=== PATIENT | male | born 1955 | race Caucasian/White ===

== ENCOUNTER → 2016-08-08 | Outpatient (CLI) | payer MEDICARE, BC ==
[~2016-08-08] MED LIST: ADVAIR 250/28 DISKU1 IH; ALBUTEROL0.09 MG/A4 IH; ALEVE 220MG220 MG PO; ALEVE ARTHRITI220 MG PO; CHILDREN'S ASPI81 M1 PO; COMBIVENT INH14.7 GM IH; COMBIVENT RESPI1 SPR INH; FLONASE ALLERG9.9 ML NAS; IPRATROPIUM BROM3 M1 IH; IPRATROPIUM BROM3 M1 INH; MUCINEX D ER T1 EACH PO; NORCO 325 MG-51 TA1 PO; OXY; SINGULAIR10 MG PO; THEO-24 20200 MG/CAP PO; ZYRTEC10 M3 PO; ZYRTEC10 MG PO
== END ==
LOC: RAD 10:38
DX: M54.5 Low back pain (principal); K59.00 Constipation, unspecified

== ENCOUNTER → 2016-11-17 | Outpatient (CLI) | payer MEDICARE, BC ==
[2015-12-02 11:14] VITALS: BP 159/75
== END ==
LOC: RAD 11:56
DX: J43.8 Other emphysema (principal); J20.9 Acute bronchitis, unspecified; R05 Cough

== ENCOUNTER → 2017-05-02 | Outpatient (CLI) | payer MEDICARE, BC ==
[2015-12-02 11:14] VITALS: BP 159/75
[2017-05-02 09:07] LABS: HEMATOCRIT 40.1 % (42.0-52.0); HEMOGLOBIN 13.2 g/dL (13.5-18.0); MEAN PLATELET VOLUME 9.7 fl (7.4-10.4); RED BLOOD COUNT 4.46 M/mm3 (4.20-5.60); RED CELL DISTRIBUTION WIDTH 13.4 % (11.5-14.5); WHITE BLOOD COUNT 7.5 K/mm3 (4.8-10.8)
[2017-05-02 09:16] LABS: ALBUMIN 3.7 g/dL (3.5-5.0); BUN/CREATININE RATIO 27.9 (6.0-26.0); CALCIUM 9.1 mg/dL (8.4-10.2); TOTAL BILIRUBIN 0.7 mg/dL (0.2-1.3); TOTAL PROTEIN 7.6 g/dL (6.3-8.2)
== END ==
LOC: LAB 08:50
PROVIDERS: Family Medicine
DX: R73.09 Other abnormal glucose (principal); Z13.6 Encounter for screening for cardiovascular disorders; Z12.5 Encounter for screening for malignant neoplasm of prostate; D64.89 Other specified anemias

== ENCOUNTER → 2017-07-27 | Outpatient (CLI) | payer MEDICARE, BC ==
[2015-12-02 11:14] VITALS: BP 159/75
[2017-07-27 08:48] LABS: HEMATOCRIT 40.3 % (42.0-52.0); HEMOGLOBIN 13.5 g/dL (13.5-18.0); MEAN PLATELET VOLUME 9.4 fl (7.4-10.4); RED BLOOD COUNT 4.5 M/mm3 (4.20-5.60); RED CELL DISTRIBUTION WIDTH 13.5 % (11.5-14.5); WHITE BLOOD COUNT 7.3 K/mm3 (4.8-10.8)
[2017-07-27 08:59] LABS: BUN/CREATININE RATIO 24.8 (6.0-26.0); CALCIUM 9.2 mg/dL (8.4-10.2); POTASSIUM 3.9 mmol/L (3.6-5.0)
== END ==
LOC: LAB 08:30
PROVIDERS: Internal Medicine Interventional Cardiology
DX: R06.02 Shortness of breath (principal)

== ENCOUNTER → 2017-10-03 | Day surgery (SDC) | payer MEDICARE, BC ==
[2015-12-02 11:14] VITALS: BP 159/75
== END ==
LOC: MSO 09:48
DX: K21.0 Gastro-esophageal reflux disease with esophagitis (principal); Z87.11 Personal history of peptic ulcer disease; R19.4 Change in bowel habit; K64.5 Perianal venous thrombosis; K62.89 Other specified diseases of anus and rectum; K59.00 Constipation, unspecified; I10 Essential (primary) hypertension; J44.9 Chronic obstructive pulmonary disease, unspecified; Z79.82 Long term (current) use of aspirin; E66.01 Morbid (severe) obesity due to excess calories; K30 Functional dyspepsia
CPT/HCPCS: 00813; J2704; J3010; J7120

== ENCOUNTER 2018-02-23 08:00 | Outpatient (RCR) | payer MEDICARE, BC ==
[2015-12-02 11:14] VITALS: BP 159/75
== END 2018-02-23 08:30 | disposition home or self-care (01) ==
LOC: OT 08:00
DX: R20.0 Anesthesia of skin (principal); Z98.890 Other specified postprocedural states

== ENCOUNTER → 2018-04-23 | Outpatient (CLI) | payer MEDICARE, BC ==
[2015-12-02 11:14] VITALS: BP 159/75
[2018-04-23 09:28] LABS: EOS # 0.2 (0.04-0.40); EOS % 2.5 % (0.0-4.0); HEMATOCRIT 40.2 % (42.0-52.0); HEMOGLOBIN 13.1 g/dL (13.5-18.0); LYMPH# 3.1 (1.50-4.00); MEAN CELL VOLUME 91 fl (78-100); MEAN CORPUSCULAR HEMOGLOBIN 30 pg (27-31); MEAN CORPUSCULAR HGB CONC 33 g/dL (33-37); MEAN PLATELET VOLUME 9.6 fl (7.4-10.4); MONO # 0.9 (0.20-0.80); NEU # 4.4 (1.40-6.50); PLATELET COUNT 263 K/mm3 (130-400); RED BLOOD COUNT 4.43 M/mm3 (4.20-5.60); RED CELL DISTRIBUTION WIDTH 13.7 % (11.5-14.5); WHITE BLOOD COUNT 8.6 K/mm3 (4.8-10.8)
[2018-04-23 09:38] LABS: ALBUMIN 4.3 g/dL (3.5-5.0); CALCIUM 8.8 mg/dL (8.4-10.2); POTASSIUM 4.2 mmol/L (3.6-5.0); TOTAL BILIRUBIN 0.6 mg/dL (0.2-1.3); TOTAL PROTEIN 7.8 g/dL (6.3-8.2)
== END ==
LOC: RAD 08:58
PROVIDERS: Family Medicine
DX: J44.0 Chronic obstructive pulmonary disease with (acute) lower respiratory infection (principal); R06.00 Dyspnea, unspecified; R73.09 Other abnormal glucose

== ENCOUNTER → 2018-05-03 | Outpatient (CLI) | payer MEDICARE, BC ==
[2015-12-02 11:14] VITALS: BP 159/75
[2018-05-03 17:06] LABS: EOS # 0.2 (0.04-0.40); EOS % 1.4 % (0.0-4.0); HEMATOCRIT 40.7 % (42.0-52.0); HEMOGLOBIN 13.2 g/dL (13.5-18.0); LYMPH# 2.8 (1.50-4.00); MEAN CELL VOLUME 91 fl (78-100); MEAN CORPUSCULAR HEMOGLOBIN 30 pg (27-31); MEAN CORPUSCULAR HGB CONC 32 g/dL (33-37); MEAN PLATELET VOLUME 9.4 fl (7.4-10.4); MONO # 1.4 (0.20-0.80); PLATELET COUNT 263 K/mm3 (130-400); RED BLOOD COUNT 4.48 M/mm3 (4.20-5.60); RED CELL DISTRIBUTION WIDTH 14.4 % (11.5-14.5); WHITE BLOOD COUNT 14.5 K/mm3 (4.8-10.8)
[2018-05-03 17:07] LABS: NEU # 9.9 (1.40-6.50)
== END ==
LOC: LAB 16:45
PROVIDERS: Family Medicine
DX: J44.9 Chronic obstructive pulmonary disease, unspecified (principal); R05 Cough

== ENCOUNTER → 2018-11-19 | Outpatient (CLI) | payer MEDICARE, BC ==
[2015-12-02 11:14] VITALS: BP 159/75
[2018-11-19 09:24] LABS: POTASSIUM 3.7 mmol/L (3.5-5.1)
[2018-11-19 09:25] LABS: CALCIUM 9.4 mg/dL (8.3-10.5)
== END ==
LOC: LAB 08:54
PROVIDERS: Family Medicine
DX: J44.1 Chronic obstructive pulmonary disease with (acute) exacerbation (principal)

== ENCOUNTER → 2019-02-19 | Outpatient (CLI) | payer MEDICARE, BC ==
[2015-12-02 11:14] VITALS: BP 159/75
[2019-02-19 08:45] LABS: POTASSIUM 4.1 mmol/L (3.5-5.1)
[2019-02-19 08:46] LABS: ALBUMIN 3.9 g/dL (3.4-4.8)
[2019-02-19 08:47] LABS: CALCIUM 9.4 mg/dL (8.3-10.5)
[2019-02-19 08:48] LABS: TOTAL PROTEIN 8.2 g/dL (6.2-8.1)
[2019-02-19 08:50] LABS: TOTAL BILIRUBIN 0.7 mg/dL (0.2-1.2)
[2019-02-19 08:55] LABS: MAGNESIUM 1.9 mg/dL (1.60-2.60)
== END ==
LOC: LAB 07:56
PROVIDERS: Family Medicine
DX: I48.91 Unspecified atrial fibrillation (principal); I10 Essential (primary) hypertension; R73.09 Other abnormal glucose

== ENCOUNTER → 2020-02-18 | Outpatient (CLI) | payer MEDICARE, BC ==
[2015-12-02 11:14] VITALS: BP 159/75
[2020-02-18 08:42] LABS: POTASSIUM 3.7 mmol/L (3.5-5.1)
[2020-02-18 08:43] LABS: CALCIUM 9.3 mg/dL (8.3-10.5)
[2020-02-18 08:46] LABS: TOTAL BILIRUBIN 0.8 mg/dL (0.2-1.2)
== END ==
LOC: LAB 08:21
PROVIDERS: Family Medicine
DX: I48.91 Unspecified atrial fibrillation (principal); I10 Essential (primary) hypertension; R73.09 Other abnormal glucose

== ENCOUNTER → 2020-02-21 | Outpatient (CLI) | payer MEDICARE, BC ==
[2015-12-02 11:14] VITALS: BP 159/75
== END ==
LOC: RAD 08:50 → LAB 08:50 → RAD 09:30
DX: R74.8 Abnormal levels of other serum enzymes (principal)

== ENCOUNTER → 2020-09-22 | Outpatient (CLI) | payer MEDICARE, BC ==
[2015-12-02 11:14] VITALS: BP 159/75
== END | disposition still patient (30) ==
LOC: VAS 13:45 → RAD 14:00 → VAS 14:00
DX: R07.89 Other chest pain (principal)

== ENCOUNTER → 2021-12-17 | Outpatient (CLI) | payer MEDICARE, BC | LOC: LAB 12:15 | DX: R06.02 Shortness of breath (principal) ==

== ENCOUNTER → 2022-08-08 | Outpatient (CLI) | payer MEDICARE, BC ==
[2022-08-08 11:53] LABS: ALBUMIN 3.7 g/dL (3.4-4.8)
[2022-08-08 11:54] LABS: CALCIUM 9.7 mg/dL (8.3-10.5)
[2022-08-08 11:57] LABS: TOTAL BILIRUBIN 0.9 mg/dL (0.2-1.2)
== END ==
LOC: LAB 11:31
PROVIDERS: Family Medicine
DX: Z00.00 Encounter for general adult medical examination without abnormal findings (principal); Z11.59 Encounter for screening for other viral diseases; Z13.6 Encounter for screening for cardiovascular disorders; Z12.11 Encounter for screening for malignant neoplasm of colon; Z13.220 Encounter for screening for lipoid disorders; Z13.1 Encounter for screening for diabetes mellitus; I10 Essential (primary) hypertension; Z71.89 Other specified counseling; E66.01 Morbid (severe) obesity due to excess calories